=== PATIENT | male | born 1945 | race Caucasian/White ===

== ENCOUNTER 2017-06-12 21:20 | Observation (INO) | payer MEDICARE ==
[~2017-06-12] VITALS: Ht 188 cm; Wt 127.4 kg
--- NOTE | 2017-06-12 21:34 | ED.REPORT ---
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 The pt reports he was sitting down with his at [facility] during symptom onset. The patient stood up, became increasingly dizzy and began to experience visual disturbances. He states that he began to see "red" and "blue" spots in his vision that were exacerbated by eye movement. Associated symptoms also include chills, diaphoresis, and increased swelling of his ankles. The pt did not fully lose consciousness during the episode and the pt's contacted EMS. His initial BP in triage was recorded at 98/62, which is lower than his baseline. He denies headache, SOB, chest pain, heart palpitations, fever, or any other symptoms at this time. Nursing Notes Stated Complaint: SYNCOPE Chief Complaint: General Complaint Nursing Notes Reviewed: Yes Allergies: Coded Allergies: No Known Allergies (Unverified , 06/12/17) Scheduled Furosemide (Lasix) 20 Mg Tablet 20 MG PO DAILY Lisinopril (Lisinopril) 20 Mg Tablet 20 MG PO DAILY Pravastatin (Pravastatin) 20 Mg Tablet 20 MG PO DAILY Warfarin Sodium (Coumadin) 5 Mg Tablet 5 MG PO DAILY General Time Seen by MD: 22:02 Chief Complaint Other (Near syncope) Hx Obtained From: Patient Arrived By: Ambulance Sudden in Onset?: Yes Onset Occurred: 46 - 59 minutes ago Symptom Duration: Since onset Severity: Current: No pain currently Severity: Maximum: No pain Associated with: Reports: Dizziness, Speech abnormal, Vision change, Denies: Chest pain, Fever, Syncope Pertinent Negative: Pt denies other symptoms Recent Healthcare: No recent doctor visit, No recent hospitalization Similar Sx Previous: No Past Medical History Past Medical History Notes: NKDA Past Medical History DVTx3 in LE - 20 years ago and is still on warfarin after the 3rd episode. Asthma COPD Arthritis Past Surgical History Right hand Reports: Tonsillectomy Family History Father by stroke at 92 Mother has Alzheimer's disease Smoking History Light Tobacco Smoker Social History Lives in [place]. Alcohol Use: 1-3 per week Other Social History: Good social support, , From out of town ([place]) Ambulatory Status Independent Review of Systems Full Review of Systems Constitutional: Reports: Chills, Denies: Fever Respiratory: Denies: Shortness of breath Cardiovascular: Reports: Edema (Chronic), Denies: Chest pain Skin: Reports Diaphoresis Neurologic: Reports: Dizziness, Vision change, Denies: Change LOC, Headache, Syncope (Near-syncope) Complete sys rev & neg: except as marked. Physical Exam Vital Signs Vital Signs Date Time Temp Pulse Resp B/P Pulse Ox O2 Delivery O2 Flow Rate FiO2 06/12/17 23:42 100 22 109/79 97 Room Air 06/12/17 22:51 79 22 111/74 96 Room Air 92/68 89/62 06/12/17 22:01 75 16 99/65 99 Room Air 06/12/17 21:36 36.5 67 16 98/62 96 Room Air Initial VS: Reviewed General/Constitutional: Well-developed, Well-nourished Head / Eyes: Atraumatic, Normocephalic, PERRL Neck: Supple, Non-tender, Full range of motion Abdomen / GI: Soft, Non-tender Skin: Warm, Dry, No cyanosis Neurologic: Alert, Oriented, Nonfocal Psychiatric: Mood/affect normal, Behavior normal, Normal thought content Respiratory / Chest: Atraumatic, No respiratory distress Wheezing / Retractions: Positive: Wheezing mild (minor scattered wheezes present) Cardiovascular: Heart rate NL, No murmurs Heart Rate / Rhythm: Positive: Irreg irregular rhythm Lower Ext Edema: Positive: Bilateral 2+ (chronic LE edema with joanie stasis changes ) Abdomen: Atraumatic, Soft, Non-tender, No guarding, No rebound Upper Extremities Upper Extremity / MS: Atraumatic, Inspection NL, Neurologic intact, Vascular intact Lower Extremity / Pelvis / MS: Atraumatic, Neurologic intact, Vascular intact Interpretation & Diagnostics Lab Results Interpretation Result Diagram: 06/12/17214206/12/172142 Test 06/12/17 21:43 White Blood Count 9.4th/mm3 (3.8-10.1) Red Blood Count 5.12mil/mm3 (4.40-5.80) Hemoglobin 14.1g/dL (13.8-17.2) Hematocrit 42.8% (41.0-50.0) Mean Corpuscular Volume 83.6fL (81-100) Mean Corpuscular Hemoglobin 27.5pg (27.0-35.0) Mean Corpuscular Hemoglobin Concent 32.9% (32.0-37.0) Red Cell Distribution Width 16.3% (12.3-15.4) Platelet Count 337bil/L (150-400) Neutrophils (%) (Auto) 61.5% (40-74) Lymphocytes (%) (Auto) 25.4% (14-46) Monocytes (%) (Auto) 9.3% (4-12) Eosinophils (%) (Auto) 3.4% (0-5) Basophils (%) (Auto) 0.2% (0-3) Prothrombin Time 13.0sec (8.1-12.5) Prothromb Time International Ratio 1.21ratio Sodium Level 138mEq/L (134-144) Potassium Level 4.6mEq/L (3.5-5.2) Chloride Level 101mEq/L (97-108) Carbon Dioxide Level 20mmol/L (18-29) Blood Urea Nitrogen 30mg/dL (8-27) Creatinine 1.43mg/dL (0.76-1.27) Estimat Glomerular Filtration Rate 52mL/min (>59) Glucose Level 107mg/dL (60-99) Calcium Level 8.8mg/dL (8.5-10.1) Magnesium Level 2.3mg/dL (1.6-2.6) Total Bilirubin 0.4mg/dL (0.0-1.2) Aspartate Amino Transf (AST/SGOT) 64U/L (0-50) Alanine Aminotransferase (ALT/SGPT) 65U/L (0-44) Alkaline Phosphatase 74U/L (25-160) Troponin T 0.010ug/L (0.0-0.011) Total Protein 7.6g/dL (6.4-8.4) Albumin 4.0g/dL (3.4-5.0) Alcohols 97mg/dL (0-10) ECG Interpretation ECG Interpretation: Atrial fibrillation with rate of 68 bpm No ischemia Question on whether this is a new Afib. No prior for comparison Time: 21:30 Interpreted by: ED physician X-Ray Chest Interpretation Chest Xray Interpretation: IMPRESSION: No evidence of heart failure No cardiomeagaly No evidence of infiltrate Interpretation / Wet Read by: Wet read ED physician Re-Eval/Medical Decision Med Decision/Clinical Course 71-year-old gentleman had a near-syncopal episode while sitting down this evening. Significant orthostatic hypotension with new atrial fibrillation on arrival. Of note he is currently anticoagulated for history of recurrent DVT and he's been on Coumadin for over 20 years because of this. He has not had known atrial fibrillation the past. He does note that over the past 1-2 weeks since being in [facility] he has had a bit more shortness of breath and he attributed it to being in [facility] rather than home in [place] Like to admit him for persistent hypertension, persistent orthostasis after 2 L fluid resuscitation, syncopal episode likely related to first to causes, and new-onset atrial fibrillation as well as acute coronary syndrome rule out Source of Hx: Old records Time of Eval: 23:44 Patient Status: Condition improved Re-Evaluation/Progress Note: Symptoms have improved upon recheck. He is informed of his current results and the plan to admit for new onset A-fib. All questions about his new diagnosis are addressed at this time. Time of Eval: 23:57 Re-Evaluation/Progress Note: Orthostatic vitals are positive. Patient is agreeable for admission at this time. Consultation : Referral / Consult Name: Kleber Brooks MD Consulted With: Hospitalist Call Returned at: 23:42 [place] Roofer Helper: Will see patient, Agrees with eval, Agrees with plan, Accepts admit Note: Discussed patient condition. Will accept admission at this time. Counseled Regarding: Diagnosis, Lab results, Need for admission Discharge & Departure Primary Impression: New onset atrial fibrillation Additional Impressions: Near syncope Orthostatic hypotension Disposition: ADMITTED TO HOSPITAL Discharge Condition All VS Reviewed: Yes Condition: Improved Scribe Attestation Portions of this note were transcribed by Yahaira Carmen and Yoselin Hudson. I, Dr. Liane Sheehan personally performed the history, physical exam and medical decision-making; I reviewed and confirmed the accuracy of the information in the transcribed note. Signed by: Yahaira Carmen and Yoselin Hudson, Jessyibe, 06/12/17. Liane Sheehan MD Jun 12, 2017 21:34 Yahaira Carmen Jun 12, 2017 22:01 YOSELIN HUDSON Jun 12, 2017 22:53
[2017-06-12 21:36] VITALS: BP 98/62; PULSE 67; RESP 16; O2SAT 96
[2017-06-12 21:48] LABS: BASOPHILS % (AUTO) 0.2 % (0-3); EOSINOPHILS % (AUTO) 3.4 % (0-5); MONOCYTES % (AUTO) 9.3 % (4-12); Mean Corpuscular Hemoglobin 27.5 pg (27.0-35.0); Mean Corpuscular Volume 83.6 fL (81-100); NEUTROPHILS % (AUTO) 61.5 % (40-74); Platelet Count 337 bil/L (150-400)
[2017-06-12 21:53] LABS: INR 1.21 ratio
[2017-06-12 21:58] LABS: TROPONIN T 0.01 ug/L (0.0-0.011)
[2017-06-12] MEDS ORDERED: WARF5TAB PO (22:00)
[2017-06-12] MEDS ORDERED: 0.9% Sodium Chloride 1,000 ML IV ONE ×2 (22:00→22:55)
[2017-06-12 22:01] VITALS: BP 99/65; PULSE 75; RESP 16; O2SAT 99
[2017-06-12 22:10] LABS: Magnesium 2.3 mg/dL (1.6-2.6)
[2017-06-12] MEDS ORDERED: FURO-129 PO (22:17)
[2017-06-12] MEDS ORDERED: LISI-567 PO (22:17)
[2017-06-12] MEDS ORDERED: PRAV20TA2 PO (22:17)
[2017-06-12 22:51] VITALS: BP_SYST 111; BP_SYST 89; BP_SYST 92; BP_DIAS 62; BP_DIAS 68; BP_DIAS 74; PULSE 79; RESP 22; O2SAT 96
[2017-06-12 23:42] VITALS: BP 109/79; PULSE 100; RESP 22; O2SAT 97
[2017-06-12 23:58] VITALS: BP 109/79; PULSE 100; RESP 22; O2SAT 97
[2017-06-13] VITALS (8 sets, daily range): BP systolic 118–130; BP diastolic 76–87; PULSE 68–87; RESP 20–22; O2SAT 98–99
--- NOTE | 2017-06-13 | NUR ---
Report received from Anna in ED.
[2017-06-13] MEDS ORDERED: Ondansetron 2 mg/mL 2 mL Inj IVPUSH PRN (00:20)
[2017-06-13] MEDS: 0.9% Sodium Chloride 1,000 ML IV SCH ×2 (00:20→10:20)
[2017-06-13] MEDS ORDERED: Alum-Mag Hydrox-Simeth 30 mL Suspension PO PRN (00:20)
[2017-06-13] MEDS ORDERED: Polyethylene Glycol (PEG) 17 Gm Powder PO PRN (00:20)
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
[2017-06-13 02:53] LABS: Mean Corpuscular Hemoglobin 27.4 pg (27.0-35.0); Mean Corpuscular Volume 84.4 fL (81-100)
[2017-06-13 03:15] LABS: INR 1.18 ratio
--- NOTE | 2017-06-13 04:24 | NUR ---
ADMIT Pt arrived on floor at 0020 via gurney. Pt transferred himself to bed easily with no assistance, denied dizziness. Son and daughter in room, son staying the night. Informed of plan of care including ECHO. Placed cpox for AJAY of 6. Continuing care.
[2017-06-13] MEDS ORDERED: Pantoprazole 20 mg ER24 Tablet PO SCH (08:30)
--- NOTE | 2017-06-13 08:30 | DRSVH ---
PROCEDURE: X-RAY CHEST ONE VIEW, PORTABLE ([id number]) INDICATIONS: syncope TECHNIQUE: One view of the chest was acquired. COMPARISON: None. FINDINGS: Surgical changes and devices: None. Lungs and pleura: No pleural effusions or pneumothorax. Lungs are clear. Mediastinum: Mediastinal contours appear normal. Heart size is normal. Bones and chest wall: No suspicious bony lesions. Overlying soft tissues appear unremarkable. IMPRESSION: Source of low blood pressure is not identified. Dictated by: Rico Willard M.D. on 06/13/2017 at 8:28 Approved by: Rico Willard M.D. on 06/13/2017 at 8:29
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
--- NOTE | 2017-06-13 12:23 | DRSVH ---
[facility] [address] [place] [address] Echocardiogram Report Name: CHARO RING RStudy Date: Height: 74 in Hospital Exam Location: [facility] Weight: 281 lb Gender: Male BSA: 2.5 m2 : 1945 Age: 71 yrs BP: 118/80 mmHg Reason For Study: NEW AFIB Ordering Physician: Performed By: Kit Shelton Interpretation Summary The left ventricle is normal in size. Left ventricular systolic function is normal without focal wall motion abnormalities. The ejection fraction is estimated to be 65-70%. Diastolic function could not be accurately assessed due to atrial fibrillation. The right ventricle is normal in size and function. The right ventricular systolic pressure is estimated at 37 mmHg assuming a right atrial pressure of 8 mm Hg. The left atrium is moderately dilated. The right atrium is mildly dilated. The aortic valve is mildly calcified. There is discrete nodular thickening of the right coronary cusp. There is no aortic valve stenosis. There is no other significant valvular heart disease. The ascending aorta is moderately enlarged. The aortic arch is at the upper limits of normal in size. Procedure: A two-dimensional transthoracic echocardiogram with color flow and Doppler was performed. The study quality was technically adequate. There is no prior echocardiogram noted for this patient. The patient was in atrial fibrillation with controlled ventricular rate during the exam. The patient had a heart rate of 62-100 beats per minute. Left Ventricle: The left ventricle is normal in size. There is normal left ventricular wall thickness. Left ventricular systolic function is normal without focal wall motion abnormalities. The ejection fraction is estimated to be 65-70%. Diastolic function could not be accurately assessed due to atrial fibrillation. Right Ventricle: The right ventricle is normal in size and function. Atria: The left atrium is moderately dilated. The right atrium is mildly dilated. The interatrial septum is intact with no evidence for an atrial septal defect. Mitral Valve: The mitral valve is normal in structure and function. There is trace mitral regurgitation. Aortic Valve: The aortic valve is trileaflet. The aortic valve is mildly calcified. The aortic valve opens well. There is discrete nodular thickening of the right coronary cusp. There is no aortic valve stenosis. No aortic regurgitation is present. Tricuspid Valve: The tricuspid valve is normal in structure and function. There is trace tricuspid regurgitation. The right ventricular systolic pressure is estimated at 37 mmHg assuming a right atrial pressure of 8 mm Hg. Pulmonic Valve: The pulmonic valve is normal in structure and function. There is trace pulmonic regurgitation. There is no other significant valvular heart disease. Great Vessels: The aortic root is normal size. The ascending aorta is moderately enlarged. The aortic arch is at the upper limits of normal in size. The pulmonary artery is normal size. The IVC is dilated (diameter is greater than 2.1 cm) yet it collapses greater than 50% with a sniff. This suggests a right atrial pressure of 8 mm Hg. Pericardium/ Pleura There is no pericardial effusion. There is no pleural effusion. MMode/2D Measurements & Calculations LVIDd: 5.3 cm LA dimension: 5.2 cm LVIDs: 2.2 cm FS: 57.9 % LA A2 area: 32.8 cm EPSS: 0.59 cm LA A4 area: 27.8 cm IVSd: 0.95 cm LA length (vol): 6.8 cm LVPWd: 0.90 cm LA vol: 114.0 ml LA vol index: 45.4 ml/m IVC diam: 2.4 cm RA long axis: 5.3 cm LVOT diam: 2.5 cm RA area: 22.1 cm AoV Openin.9 cm RA vol: 77.6 ml Ao root diam: 3.8 cm RA : 30.9 ml/m2 Aortic Jxn: 3.5 cm asc Aorta Diam: 4.5 cm Ao Arch Diam (Prox Trans): 3.3 cm LV brenner. diameter/BSA (cm/m^2): 2.1 LV sys. diameter/BSA (cm/m^2): 0.90 RVD1 (basal): 4.1 cm RVD2 (mid): 3.7 cm Doppler Measurements & Calculations Ao V2 max: 163.5 cm/sec MV E max corey: 104.2 cm/sec Ao max P.8 mmHg MV A max corey: 0.50 cm/sec Ao mean P.5 mmHg LVOT Max Corey: 90.0 cm/sec ALEJANDRO(I,D): 2.9 cm sev ratio: 0.60 MV E/A: 209.5 TR max corey: 269.1 cm/sec Med Peak E' Corey: 8.0 cm/sec TR max P.0 mmHg E/E' med: 13.0 PA V2 max: 92.7 cm/sec PA mean P.9 mmHg PA Accel Time: 0.14 sec MV dec time: 0.20 sec Ao V2 mean: 123.8 cm/sec Ao V2 VTI: 30.4 cm ALEJANDRO(V,D): 2.6 cm2 LV V1 max P.2 mmHg PA V2 mean: 66.1 cm/sec LV V1 VTI: 18.3 cm PA pr(Accel): 14.1 mmHg ALEJANDRO indexed to BSA (cm^2/m^2): 1.2 Reading Physician:CONCETTA
[2017-06-13] MEDS ORDERED: RIVA15TA PO (14:04)
--- NOTE | 2017-06-13 14:19 | PCM.DIMED ---
Discharge Instructions Date of Service Jun 13, 2017 Dates of Hospitalization Jun 12, 2017 at 23:47 Discharge Diagnosis Discharge Diagnosis acute dx Newly diagnosed atrial fibrillation orthostatic hypotension, likely due to diuretics Acute Elevation of Transaminases, resolved EDUARDO , prerenal, resolved Chronic dx History of COPD, HTN recurrent DVT on anticoagulation Medication Instructions Additional med instructions Please stop taking Furosemide. Please note that Metoprolol succinate 25mg was given. Please start taking if you blood pressure persistently >150s and heart rate >100 take Coumadin 5mg and 7.5mg alternating until protime is checked in the clinic Diet Discharge Diet: Low fat, Low Sodium, Heart Healthy Activity Discharge Activity: No restrictions Call your provider Call your provider for: Shortness of breath, Chest pain Patient Instructions Patient Instructions You were hospitalized with lightheadedness, found to have mild kidney injury and irregular heart beat "A.fib", It's likely that your symptoms were due to dehydration from water pill you take at home. Your symptoms resolved with supportive treatment with IV fluid. Given your irregular heart beats, increase risks of stroke. You were recommended to continue blood thinner, since your want to try new agent which doesn't require monitoring, Xarelto was checked but unfortunately it is not covered by your insurance. Please note that you still have to monitor any symptoms of bleeding, black or bloody stools, vomiting blood, acute headache, if it happens, please stop takingm Coumadin and return to the hospital. Since you don't have Primary doctor in this region, referral for new primary doctor arranged. Please follow up in [facility] in one week, Please follow up with Front Counter Clerk given newly developed heart condition. Please continue Coumadin as mentioned as above Follow-up Provider: [facility] Follow-up with PCP in: 1 week Nicole Davis MD Jun 13, 2017 14:05
--- NOTE | 2017-06-13 15:04 | NUR ---
Social Work: Initial Assessment / Multidisciplinary Rounds / Discharge Data: See initial assessment. Patient is a 71 year old male who was admitted on 06/12/17 for new AFIB and orthostatic hypertension per H&P. Patient's insurance is Medicare and no PCP is listed at this time. EMR reviewed. SW met with patient and family to discuss discharge planning. SW role explained. Patient states that he lives with family in a home located in [place], [place]. Patient considers his family to be his main source of support. Patient denies having a DPOA or AD and has declined SW offer for resources at this time. Patient confirms that he is I at baseline and is able to perform all ADLs and care needs. Patient states that he has a cane that he uses occasionally. Patient confirms that he drives via POV. Patient denies having a hx of home health services or SNF. Patient denies having fdc care insurance or VA benefits. Upon discharge, patient states that his family will transport him home. SW provided patient with a discharge planning checklist booklet and encouraged to call with any questions or concerns. Phone number provided. Patient was discussed in morning rounds. No concerns were noted by staff or MD. MD states that patient can possibly discharge today pending patient being prescribed the proper medication at an affordable addison. Patient will likely have no additional needs. Assessment: Patient who is from home and will likely have no needs at discharge. Plan: Patient will likely discharge today. Patient has been deemed medically stable. Transportation will be provided by family. Patient has no additional needs at this time. LUIS CARLOS Elmore Addendum: 06/13/17 at 1520 by HARRY HINES Amended: Links added.
[2017-06-13] MEDS ORDERED: METO-386 PO (15:20)
--- NOTE | 2017-06-13 16:11 | NUR ---
Discharge Patient given discharge orders. Patient given hard copies of prescriptions. Patient given medication list with written times of when next dose due. Patient given follow up instructions. Patient given informational packets. Son in room at time of discharge instructions given. Will assist patient to main entrance with staff upon discharge.
[2017-06-13] MEDS ORDERED: WARF5TAB PO (16:27)
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
== END 2017-06-13 16:45 | disposition home or self-care (01) ==
LOC: EDBD 21:20 → SED 21:20 → MPC 23:47
PROVIDERS: ADMIT Hospitalist; ATTEND Internal Medicine
DX: R55 Syncope and collapse (principal); I48.91 Unspecified atrial fibrillation; N17.9 Acute kidney failure, unspecified; R74.0 Nonspecific elevation of levels of transaminase and lactic acid dehydrogenase [LDH]; J44.9 Chronic obstructive pulmonary disease, unspecified; I10 Essential (primary) hypertension; I82.509 Chronic embolism and thrombosis of unspecified deep veins of unspecified lower extremity; Z99.81 Dependence on supplemental oxygen; Z91.19 Patient's noncompliance with other medical treatment and regimen; F17.220 Nicotine dependence, chewing tobacco, uncomplicated; Z79.01 Long term (current) use of anticoagulants
CPT/HCPCS: 36415; 71010; 80053; 83735; 84443; 84484; 85025; 85027; 85610; 93005; 96360; 96361; 99285; C8929; G0378; G0480; J7030